=== PATIENT | female | born 1950 | race Caucasian/White ===

== ENCOUNTER 2021-01-24 18:19 | Emergency (ER) | payer BC, SELFPAY ==
--- NOTE | ~2021-01-24 | CT_ITS ---
EXAMINATION: CT HIP WITHOUT CONTRAST, RIGHT CLINICAL INFORMATION: Fall in the shower. Right hip pain. COMPARISON: None TECHNIQUE: Axial images obtained to the right hip. Coronal and sagittal reformatted images are performed at CT scanner This CT examination was performed using dose optimization techniques as appropriate, variously including the following: *Automated exposure control *Adjustment of mA and/or kV according to patient size (this includes techniques or standardized protocols for targeted exams where dose is matched to indication/reason for exam; i.e. extremities or head) *Use of iterative reconstruction technique DLP: 331.3 mGy-cm FINDINGS: There is no fracture or dislocation of the right hip. Bone and joint are normal. No hematoma or focal fluid collection. CT/CT hip RT wo con IMPRESSION: Normal CT of the right hip.
--- NOTE | ~2021-01-24 | CT_ITS ---
EXAMINATION: CT LUMBAR SPINE WITHOUT CONTRAST CLINICAL INFORMATION: Fall COMPARISON: None TECHNIQUE: Axial images through the lumbar spine without contrast. Sagittal and coronal reconstructions on the technologist workstation were performed. This CT examination was performed using dose optimization techniques as appropriate, variously including the following: *Automated exposure control *Adjustment of mA and/or kV according to patient size (this includes techniques or standardized protocols for targeted exams where dose is matched to indication/reason for exam; i.e. extremities or head) *Use of iterative reconstruction technique DLP; 8-9 mGy-cm FINDINGS: Bone alignment is normal. There is a severe recent-appearing superior endplate L1 vertebral body compression fracture. There is some retropulsion of bone seen centrally into the spinal canal measuring 8 mm. There is degenerative disc disease at L4-L5 and L5-S1. Spinal levels: T12-L1: There is central retropulsion of bone from the superior endplate L1 compression fracture. This measures 8 mm in AP dimension. L1-L2: There is left lateral disc bulge. No disc herniation is seen. No spinal stenosis. L2-L3: There is diffuse disc bulge. There is mild secondary spinal stenosis due to disc bulge, short and short pedicles. L3-L4: There is diffuse disc bulge. There is severe secondary spinal stenosis due to disc bulge, short pedicles and facet arthritis and ligamentum flavum thickening. L4-L5: There is diffuse disc bulge. There is severe secondary spinal stenosis due to disc bulge, short pedicles, facet arthritis and ligamentum flavum thickening. L5-S1: There is diffuse disc bulge. There is moderate secondary spinal stenosis due to disc bulge, short pedicle and facet arthritis. There is diverticulosis of the colon. There is evidence of atherosclerotic disease. CT/CT lumbar spine wo con IMPRESSION: Severe acute-appearing compression fracture of the superior endplate of the L1 vertebral body with the propulsion of bone into the spinal canal measuring 8 mm. Multilevel degenerative disc disease and secondary spinal stenosis greatest at L3-L4 and L4-L5.
[2021-01-24 18:22] VITALS: BP 150/80; PULSE 88; O2SAT 98
[2021-01-24 18:26] VITALS: BP 210/83; PULSE 82; RESP 18; TEMP 36.9; O2SAT 99; BMI 36.8
--- NOTE | 2021-01-24 19:24 | ED_ITS ---
HPI - Fall General Chief Complaint: Fall Stated Complaint: fall Time Seen by Provider: 01/24/21 19:16 Source: patient Mode of arrival: EMS Limitations: physical limitation History of Present Illness HPI Narrative: patient is a 70-year-old female the past medical history of HTN, hypothyroid and depression who fell in the shower just prior to arrival. She states she was trying to reach too far for the shampoo bottle slipped and fell landing on her right hip. She states the pain radiates down her right leg. She denies hitting her head she denies in consciousness and she denies being on blood thinners. Denies loss of control of bladder or bowels. She is in 10/10 pain. She called an ambulance right away and did not try to do anything to manage her pain. Related Data Allergies Allergy/AdvReac Type Severity Reaction Status Date / Time No Known Allergies Allergy Verified 01/24/21 18:29 Review of Systems Review of Systems: Yes all other systems are reviewed and are negative [facility] Past Medical History Medical History Depression HTN (hypertension) Hypothyroid Surgical History H/O abdominal hysterectomy Social History Social History Advance Directives: No Advance Directives Information Provided: Yes Physical Exam Vital Signs: Vital Signs: Last Vital Signs Temp 98.2 F 01/24/21 21:50 Pulse 82 01/24/21 21:50 Resp 18 01/24/21 21:50 BP 166/61 H 01/24/21 21:50 Pulse Ox 94 01/24/21 21:50 Body Mass Index 36.8 Const: General: cooperative, healthy appearing, well developed and acute distress (Pt writhing in pain in bed, rubbing at her right hip &yelling) Nutritional Appearance: obese Orientation/consciousness: patient oriented x3 Limitations: no limitations HENMT: Head: Yes normal to inspection, Yes No palpable skull fracture present, Yes normocephalic, Yes atraumatic, No Stringer's sign and No raccoon eyes Eyes: General: appearance normal, both eyes and all related structures Neck: Neck: Yes normal visual inspection and Yes full ROM Resp: Effort & Inspection: normal respiratory effort and able to speak in complete sentences Back/Spine/Pelvis: Other: unable to perform an exam of her back or hip as patient is in too much pain and did not want me touching her. Will medicate and then do an exam. Pt able to flex hip on right side with no pain, sensation intact. Left side, flex with pain, sensation intact. Skin: General skin exam: no rashes or lesions noted Neuro: General: patient oriented x3 Extrem: General: Yes normal to inspection Course Course Course Narrative: patient is a 70-year-old female the past medical history of HTN, hypothyroid and depression who fell in the shower just prior to arrival. Vital signs are stable except for patient is hypertensive at 210/83 likely secondary to pain. Patient is in extreme amount of pain, writhing in the bed 1 let me do a physical exam. I will give Dilaudid and then reassess. Will get labs in the meanwhile and EKG. Once her pain is under control, will get CT scan of the right hip and low back. Reevaluation(s) Reevaluation #1: CT scan of the lumbar spine shows severe acute appearing compression fracture of the superior endplate of L1 vertebral body with the propulsion of bone into the spinal canal measuring [address]. [address] Brasher, he examined pt, advised to call [facility] Neurosurgery. Spoke with [facility] Neurosurgery Trauma doc, Dr. Prado, he okayed transfer to [facility]. Ordered Ambulance, gave 10mg decadron as per Dr Brasher. Time: 21:47 MDM - Fall Lab Data Attestation: I reviewed the patient's lab results. Result diagrams: 01/24/21 19:45 01/24/21 19:45 Labs: Lab Results 01/24/21 01/24/21 01/24/21 Range/Units 19:45 19:45 19:45 WBC 6.5 (4.8-10.8) X10*3/uL RBC 4.46 (4.20-5.50) X10*6/uL Hgb 14.5 (12.0-16.0) g/dl Hct 42.6 (37-47) % MCV 95.5 (80-98) fL MCH 32.5 (27.0-33.0) pg MCHC 34.0 (31.0-35.0) g/dl RDW 13.1 (11.0-16.0) % Plt Count 288 (160-400) X10*3/uL MPV 8.9 L (9.4-12.3) fL Immature Gran % (Auto) 0.5 H (0.0-0.4) % Neut % (Auto) 69.6 (45-73) % Lymph % (Auto) 19.4 L (20-40) % Dubois % (Auto) 8.0 (2-11) % Eos % (Auto) 1.7 (0-4) % Baso % (Auto) 0.8 (0-2) % Lymph # (Auto) 1.3 (1.2-4.9) X10*3/uL Dubois # (Auto) 0.5 (0.1-1.2) X10*3/uL Eos # (Auto) 0.1 (0.0-0.4) X10*3/uL Baso # (Auto) 0.1 (0.0-0.2) X10*3/uL Abs Immat Gran (auto) 0.03 (0.00-0.03) X10*3/uL Absolute Neuts (auto) 4.6 (2.0-8.3) X10*3/uL Absolute Nucleated RBC 0.000 (0.0-0.012) X10*3/uL Nucleated RBC % (auto) 0.0 (0.0-0.2) /100WBC Sodium 133 L (135-145) mmol/L Potassium 4.5 (3.3-5.1) mmol/L Chloride 92 L (96-108) mmol/L Carbon Dioxide 30 H (22-29) mmol/L Anion Gap 16 (12-20) BUN 12 (9-16) mg/dL Creatinine 0.81 (0.5-1.4) mg/dL Estim Creat Clear Calc 74.3 Estimated GFR > 60 Random Glucose 127 H (60-115) mg/dL Calcium 10.3 H (8.4-10.2) mg/dL Total Creatine Kinase (26-140) U/L Troponin I High Sens (<3.5-17.0) ng/L B-Natriuretic Peptide 34 (<100) pg/mL 01/24/21 01/24/21 Range/Units 19:45 19:45 WBC (4.8-10.8) X10*3/uL RBC (4.20-5.50) X10*6/uL Hgb (12.0-16.0) g/dl Hct (37-47) % MCV (80-98) fL MCH (27.0-33.0) pg MCHC (31.0-35.0) g/dl RDW (11.0-16.0) % Plt Count (160-400) X10*3/uL MPV (9.4-12.3) fL Immature Gran % (Auto) (0.0-0.4) % Neut % (Auto) (45-73) % Lymph % (Auto) (20-40) % Dubois % (Auto) (2-11) % Eos % (Auto) (0-4) % Baso % (Auto) (0-2) % Lymph # (Auto) (1.2-4.9) X10*3/uL Dubois # (Auto) (0.1-1.2) X10*3/uL Eos # (Auto) (0.0-0.4) X10*3/uL Baso # (Auto) (0.0-0.2) X10*3/uL Abs Immat Gran (auto) (0.00-0.03) X10*3/uL Absolute Neuts (auto) (2.0-8.3) X10*3/uL Absolute Nucleated RBC (0.0-0.012) X10*3/uL Nucleated RBC % (auto) (0.0-0.2) /100WBC Sodium (135-145) mmol/L Potassium (3.3-5.1) mmol/L Chloride (96-108) mmol/L Carbon Dioxide (22-29) mmol/L Anion Gap (12-20) BUN (9-16) mg/dL Creatinine (0.5-1.4) mg/dL Estim Creat Clear Calc Estimated GFR Random Glucose (60-115) mg/dL Calcium (8.4-10.2) mg/dL Total Creatine Kinase 141 H (26-140) U/L Troponin I High Sens < 3.5 (<3.5-17.0) ng/L B-Natriuretic Peptide (<100) pg/mL ECG Data Attestation: I personally reviewed and interpreted this ECG as follows: Interpretation: [address] [id number] ReportDraft Patient: Linda GundersonMR#: [id number]: [id number]:[id number]/Sex: 70 / FADM Date: 01/24/21Loc: [address]: Ordering Physician: Cheryl Denny PA-C Date of Service: 01/24/21 Procedure(s): ECG 12 lead EKG Accession Number(s): [id number] cc: ~ Test Reason : FALL Blood Pressure : / mmHG Vent. Rate : 084 BPM Atrial Rate : 084 BPM P-R Int : 172 ms QRS Dur : 086 ms QT Int : 370 ms P-R-T Axes : 086 -08 010 degrees QTc Int : 437 ms Normal sinus rhythm Nonspecific ST and T wave abnormality Abnormal ECG No previous ECGs available Referred By: Cheryl Denny Electronically Signed By: Dictated By:Signed By: DD/ 57TD/TT: 01/24/211957Transcriptionist: Discharge Plan Discharge Clinical Impression: Traumatic compression fracture of L1 lumbar vertebra Qualifiers: Encounter type: initial encounter Fracture type: closed Qualified Code(s): S32.010A - Wedge compression fracture of first lumbar vertebra, initial encounter for closed fracture Patient Disposition: [facility] Transfer Details: [facility] Category [address] Lamas
--- NOTE | 2021-01-24 19:28 | ECG_ITS ---
Test Reason : FALL Blood Pressure : / mmHG Vent. Rate : 084 BPM Atrial Rate : 084 BPM P-R Int : 172 ms QRS Dur : 086 ms QT Int : 370 ms P-R-T Axes : 086 -08 010 degrees QTc Int : 437 ms Normal sinus rhythm Nonspecific ST and T wave abnormality Abnormal ECG No previous ECGs available Referred By: Cheryl Denny Electronically Signed By:LANA MIRANDA MD
[2021-01-24] MEDS: HYDROmorphone HCl 0.5 MG/0.5 ML SYRINGE IVPUSH ×2 (19:46→21:21)
--- NOTE | 2021-01-24 19:49 | PC.NURSE ---
this rn went in to place an IV, draw labs and medicate the patient upon arrival to the room patient verbally aggressive to this RN regarding how long she has had to wait and that she is in Excruciating pain that has not be addressed . this rn apologized for the patients discomfort and reminded her once again that I had pain medication and needed to place an IV and draw blood in order to administer her pain medication. pt restless and continues to make comments about how long she had to wait and that [facility] staff if patients have to wait this long
[2021-01-24 19:51] LABS: MANUAL DIFF FLAG NO
[2021-01-24 19:52] LABS: Basophils Absolute Auto 0.1 X10*3/uL (0.0-0.2); Basophils Percent Auto 0.8 % (0-2); Eosinophils Absolute Auto 0.1 X10*3/uL (0.0-0.4); Eosinophils Percent Auto 1.7 % (0-4); Hematocrit 42.6 % (37-47); Hemoglobin 14.5 g/dl (12.0-16.0); Imm Gran Abs Auto 0.03 X10*3/uL (0.00-0.03); Imm Gran Pct Auto 0.5 % (0.0-0.4); Lymphocytes Absolute Auto 1.3 X10*3/uL (1.2-4.9); Lymphocytes Percent Auto 19.4 % (20-40); Mean Corpuscular Hemoglobin 32.5 pg (27.0-33.0); Mean Corpuscular Volume 95.5 fL (80-98); Mean Platelet Volume 8.9 fL (9.4-12.3); Monocytes Absolute Auto 0.5 X10*3/uL (0.1-1.2); Neutrophils Absolute Auto 4.6 X10*3/uL (2.0-8.3); Neutrophils Percent Auto 69.6 % (45-73); Platelet Count 288 X10*3/uL (160-400); Red Blood Count 4.46 X10*6/uL (4.20-5.50); Red Cell Distribution Width 13.1 % (11.0-16.0); White Blood Count 6.5 X10*3/uL (4.8-10.8)
[2021-01-24 19:54] VITALS: BP 164/67; PULSE 83; RESP 16; O2SAT 99
[2021-01-24 20:16] LABS: Anion Gap 16 (12-20); Blood Urea Nitrogen 12 mg/dL (9-16); Calcium 10.3 mg/dL (8.4-10.2); Carbon Dioxide 30 mmol/L (22-29); Chloride 92 mmol/L (96-108); Creatinine Clr Calc Pharmacy 74.3; Estimated Glomerular Filt Rate > 60; Glucose Random 127 mg/dL (60-115); Potassium 4.5 mmol/L (3.3-5.1); Sodium 133 mmol/L (135-145)
[2021-01-24 20:23] LABS: B Type Natriuretic Peptide 34 pg/mL (<100); Troponin-I High Sensitivity < 3.5 ng/L (<3.5-17.0)
[2021-01-24 21:50] VITALS: BP 166/61; PULSE 82; RESP 18; TEMP 36.8; O2SAT 94
[2021-01-24] MEDS: dexAMETHasone sod phosphate 10 MG/ML VIAL IVPUSH (22:01)
[2021-01-24 22:22] LABS: COVID-19 Test Negative (Negative)
== END 2021-01-24 22:40 | disposition short-term general hospital (02) ==
PROVIDERS: Physician Assistant; Emergency Provider Internal Medicine; PCP Nurse Practitioner Adult Health
DX: S32.010A Wedge compression fracture of first lumbar vertebra, initial encounter for closed fracture (principal); W18.2XXA Fall in (into) shower or empty bathtub, initial encounter; M25.551 Pain in right hip; Y93.E1 Activity, personal bathing and showering; Y92.012 Bathroom of single-family (private) house as the place of occurrence of the external cause; Y99.9 Unspecified external cause status; Z20.822 Contact with and (suspected) exposure to COVID-19
CPT/HCPCS: 36415; 72131; 73700; 80048; 82550; 83880; 84484; 85025; 87635; 93005; 96374; 96375; 96376; 99285; J1100; J1170

== ENCOUNTER 2023-08-18 08:48 | Outpatient (REF) | payer BC, SELFPAY | END 2023-08-18 08:49 | disposition home or self-care (01) | LOC: HO.SH 08:48 | PROVIDERS: Visit Provider Student in an Organized Health Care Education/Training Program | DX: Z01.118 Encounter for examination of ears and hearing with other abnormal findings (principal); H90.3 Sensorineural hearing loss, bilateral | CPT/HCPCS: 92557 ==